=== PATIENT | female | born 1975 | race Caucasian/White ===

== ENCOUNTER → 2022-11-19 11:59 | Outpatient (CLI) | payer OTHER, SELFPAY ==
--- NOTE | 2022-11-19 | DI.US.S_ITS ---
PROCEDURE: US THYROID INDICATIONS: THYROTOXICOSIS TECHNIQUE: Real-time scanning was performed of the thyroid gland, with image documentation. COMPARISON: None. FINDINGS: Right: Thyroid lobe measures 5 x 1.5 x 1.3 cm, and is heterogeneous in echotexture. Left: Thyroid lobe measures 5.6 x 2.7 x 2.7 cm, and is heterogeneous in echotexture. Isthmus: 4.6 mm thick. Nodule number: 1 Location: Upper pole left thyroid lobe Size: 1.2 x 0.9 x 1 cm Composition: Cystic Echogenicity: Anechoic Shape: Wider than tall Margins: Smooth Echogenic foci: Macro calcifications Total points: 2 ACR TI-RADS category: Not suspicious Nodule number: 2 Location: Mid pole left thyroid lobe Size: 2.8 x 2.8 x 2.7 cm Composition: Predominantly cystic Echogenicity: Anechoic Shape: Wider than tall Margins: Smooth Echogenic foci: Punctate with mobile debris. Total points: 3 ACR TI-RADS category: Mildly suspicious Nodule number: 3 Location: Lower pole left thyroid lobe Size: 2.5 x 1.7 x 2.8 cm. Composition: Predominantly solid Echogenicity: Hypoechoic Shape: Wider than tall Margins: Irregular Echogenic foci: Punctate and macro calcifications Total points: 7 ACR TI-RADS category: Highly suspicious Delete IMPRESSION: 1. Heterogeneous thyroid parenchymal echogenicity with at least 3 left thyroid nodules as described above. Consider fine-needle aspiration of the lower pole left thyroid lobe nodule for more further evaluation. ACR TI-RADS definitions and recommendations: TI-RADS 1 (benign): 0 points. FNA not needed. TI-RADS 2 (not suspicious): 2 points. FNA not needed. TI-RADS 3 (mildly suspicious): 3 points. * FNA if 2.5 cm or larger, follow up if 1.5 cm or larger (at 1, 3, and 5 years). TI-RADS 4 (moderately suspicious): 4-6 points. * FNA if 1.5 cm or larger, follow up if 1 cm or larger (at 1, 2, 3, and 5 years). TI-RADS 5 (highly suspicious): 7 points or more. * FNA if 1 cm or larger, follow up if 0.5 cm or larger (every year for 5 years). Dictated by: Jaret Gonzalez M.D. on 11/19/2022 at 16:27 Approved by: Jaret Gonzalez M.D. on 11/19/2022 at 16:29
--- NOTE | 2022-11-19 | DI.US.S_ITS ---
PROCEDURE: US PELVIC COMPLETE INDICATIONS: Menopausal and female climacteric states TECHNIQUE: Real-time scanning was performed of the pelvic organs, with image documentation. Additional endovaginal scanning was necessary due to incomplete visualization of the adnexal and endometrial structures by transabdominal scanning. COMPARISON: None. FINDINGS: Uterus: Uterus is anteverted and enlarged in size at 9.9 x 3.9 x 4.8 cm. The myometrium is heterogeneous. No discrete uterine fibroid is seen. The endometrium measures 8 mm combined thickness. 1.7 x 1.4 x 2.2 cm hypoechoic area is noted within the endometrium. No definite internal vascularity is seen. Ovaries: The right ovary measures 4.1 x 3.3 x 2.8 cm, with a calculated ovarian volume of 21.8 cc. The left ovary measures 2.6 x 2.2 x 2.9 cm, with a calculated ovarian volume of 8.4 cc. 3.9 x 3 x 2.9 cm simple cyst is seen in right ovary. Less than 12 follicles can be seen in each ovary. No adnexal masses are seen. Normal blood flow is seen in bilateral ovaries on color Doppler images. Other: No pathologic free abdominal or pelvic fluid. IMPRESSION: 1. Enlarged uterus, no discrete uterine fibroids. 2. Suggestion of 1.7 x 1.4 x 2.2 cm hypoechoic area within endometrium, no definite internal vascularity is seen. Finding could represent polyp versus uterine fibroid versus other endometrial mass. [employer] correlation is recommended. 3. Simple cyst in right ovary as above. No solid appearing ovarian lesion. No evidence of ovarian torsion. We strive to produce accurate, complete, and clear reports of imaging services. To assist us in improving patient care, this report was composed using standard report templates and voice recognition software. Therefore, it may contain abnormal punctuation, insertions and/or omissions. Occasional wrong-word or sound-alike substitutions may occur. Though we review the report and make efforts to correct it, we do recommend that the report be read carefully in proper context to recognize any text inaccuracies. Dictated by: Jaret Gonzalez M.D. on 11/19/2022 at 14:15 Approved by: Jaret Gonzalez M.D. on 11/19/2022 at 14:36
== END ==
PROVIDERS: Referring Provider Naturopath; Visit Provider Naturopath
DX: E05.90 Thyrotoxicosis, unspecified without thyrotoxic crisis or storm (principal); N85.2 Hypertrophy of uterus; N95.1 Menopausal and female climacteric states; N83.291 Other ovarian cyst, right side; E04.2 Nontoxic multinodular goiter
CPT/HCPCS: 76536; 76830; 76856; 93976

== ENCOUNTER → 2025-05-11 13:12 | Outpatient (CLI) | payer OTHER, SELFPAY | PROVIDERS: Visit Provider Obstetrics & Gynecology | DX: R30.0 Dysuria (principal); N39.46 Mixed incontinence | CPT/HCPCS: 87086 ==